=== PATIENT | female | born 1955 | race Caucasian/White ===

== ENCOUNTER 2022-11-12 23:31 | Emergency (ER) | payer MEDICARE ==
[~2022-11-12] VITALS: Ht 170.2 cm; Wt 74.0 kg
[2022-11-12 23:38] VITALS: BP 131/51
[2022-11-13 00:17] LABS: CLARITY,URINE CLOUDY (Clear)
[2022-11-13 00:18] LABS: UA COLLECTION TYPE CLN CATCH MIDSTREAM
[2022-11-13 01:08] LABS: COLOR,URINE BROWN (Yellow)
[2022-11-13 01:12] LABS: BACTERIA,URINE NONE SEEN /HPF (Neg); MUCUS STRANDS NONE SEEN /LPF (Neg); SQUAMOUS EPITHELIAL CELL,UR NONE SEEN /LPF (FEW)
[2022-11-13 01:17] LABS: RBC,URINE TNTC /HPF (0-2)
[2022-11-13] MEDS ORDERED: CEPH-585 PO (01:18)
[2022-11-13] MEDS ORDERED: cephalexin 250mg capsule PO ONE (01:20)
[2022-11-13] MEDS ORDERED: phenazopyridine 100mg tablet PO ONE (01:25)
== END 2022-11-13 01:44 | disposition home or self-care (01) ==
LOC: ER 23:32
DX: R31.9 Hematuria, unspecified (principal); R30.0 Dysuria; R30.9 Painful micturition, unspecified
CPT/HCPCS: 81001; 87088; 99283